=== PATIENT | female | born 2005 | race Caucasian/White ===

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

== ENCOUNTER 2023-07-26 10:42 | Emergency (ER) | payer OTHER, SELFPAY ==
--- NOTE | ~2023-07-26 | XR_ITS ---
EXAMINATION: XR wrist LT min 3V DATE: 07/26/2023 10:59 INDICATION: Left wrist pain, initial encounter TECHNIQUE: Three views of the left wrist were obtained. COMPARISON: None available FINDINGS: There is an acute, traumatic, closed, comminuted, intra-articular fracture of the distal ra dius. The fracture plane extends from lateral cortex of the radial styloid to the distal articular vallejo rface as well as along the axis of the distal radial shaft. There is impaction at the fracture site w ith fracture fragments projecting dorsal to the distal radius. An ulnar styloid avulsion is noted. No additional fracture is identified. Soft tissue swelling surrounds the fractures. IMPRESSION: 1. Comminuted intra-articular fracture of the distal radius as detailed above. 2. Ulnar styloid avulsion. Reviewed, dictated and finalized at location B. L OPERATOR
[2023-07-26 11:00] VITALS: BP 105/65; PULSE 106; RESP 18; TEMP 36.4; O2SAT 100
--- NOTE | 2023-07-26 11:16 | ED.UPPEXIN ---
HPI - Extremity Injury (Upper) General Chief Complaint: Extremity Injury, Upper Stated Complaint: left wrist injury Time Seen by Provider: 07/26/23 11:03 History of Present Illness HPI narrative: 17-year-old female presents to the emergency room for evaluation of left wrist pain status post FOOSH injury. Patient states that she was at work, when she slipped and fell on a wet floor landing on an outstretched arm. Related Data Home Medications Medication Instructions Recorded Confirmed quetiapine 50 mg tablet 50 mg PO DAILY 12/06/20 06/28/23 topiramate 25 mg tablet (Topamax) 25 mg PO DAILY 05/04/22 06/28/23 Allergies Allergy/AdvReac Type Severity Reaction Status Date / Time amoxicillin Allergy Hives Verified 06/28/23 13:24 Review of Systems Review of Systems: CONSTITUTIONAL: Denies fever, chills, or sweats. EYES: Denies visual changes, redness, or discharge. ENT: Denies rhinorrhea, congestion, sore throat, or otalgia. CARDIOVASCULAR: Denies chest pain, palpitations, or edema. RESPIRATORY: Denies cough or dyspnea. GASTROINTESTINAL: Denies abdominal pain, nausea, vomiting, or diarrhea. GENITOURINARY: Denies dysuria or hematuria. SKIN: Denies rash or itching. MUSCULOSKELETAL: Reports left wrist pain NEUROLOGIC: Denies headache, numbness, dizziness, or weakness. PSYCHIATRIC: Denies anxiety or depression. PMFSH Past Medical History Medical History Anxiety Depression Migraines Surgical History Surgical History History of myringotomy History of perforation of tympanic membrane History of tonsillectomy and adenoidectomy Social History Social History Smoking status: Never smoker Second hand tobacco smoke exposure: No Alcohol intake: never Substance use: current Substance use type: marijuana Living arrangements: with family Occupation/Education: occupation Gender identity (if verbalized by the patient): Female Sexual Orientation (if Verbalized by the Patient): Straight or Heterosexual Exam Narrative: GENERAL: Well-appearing, well-nourished, no physical limitations, and in no acute distress. HEAD: Normocephalic, atraumatic. EYES: Conjunctivae normal, PERRLA and EOMI. CHEST: Clear to auscultation. No respiratory distress. No wheezes rales or rhonchi. HEART: Regular rate and rhythm. No murmur heard. Normal peripheral pulses. EXTREMITIES: Left wrist: +TTP with STS over the dorsal aspect with obvious bony abnormality. LROM d/t pain. Neurovascular is intact distally SKIN: Warm, dry, no rash. No noted wounds NEURO: No focal deficits. Alert and oriented x3. MAEW. CN's II-XI intact bilaterally, normal gait PSYCH: Cooperative. Normal mood and affect. Course Vital Signs Vital signs: Vital Signs Temperature 36.4 C 07/26/23 11:00 Pulse Rate 106 H 07/26/23 11:00 Respiratory Rate 18 07/26/23 11:00 Blood Pressure 105/65 07/26/23 11:00 Pulse Oximetry 100 07/26/23 11:00 Temperature 36.4 C 07/26/23 11:00 Pulse Rate 106 H 07/26/23 11:00 Respiratory Rate 18 07/26/23 11:00 Blood Pressure 105/65 07/26/23 11:00 Pulse Oximetry 100 07/26/23 11:00 MDM - Extremity Injury (Upper) Imaging Data Radiologist's impression: Impressions Wrist X-Ray 07/26/23 11:04 IMPRESSION: 1. Comminuted intra-articular fracture of the distal radius as detailed above. 2. Ulnar styloid avulsion. Discharge Plan Discharge Clinical Impression: Closed left radial fracture Qualifiers: Encounter type: initial encounter Radius location: distal Fracture morphology: other intra-articular Qualified Code(s): S52.572A - Other intraarticular fracture of lower end of left radius, initial encounter for closed fracture Fracture of left ulna Qualifiers: Encounter type: initial encounter Ulna location: stylo
[2023-07-26] MEDS: HYDROcodone/acetaminophen (*CRX) 5-325 MG TABLET 1 TAB PO (11:18)
== END 2023-07-26 11:45 | disposition home or self-care (01) ==
LOC: ANHED 11:40
PROVIDERS: Emergency Provider Nurse Practitioner Family; PCP Family Medicine
DX: S52.572A Other intraarticular fracture of lower end of left radius, initial encounter for closed fracture (principal); S52.612A Displaced fracture of left ulna styloid process, initial encounter for closed fracture; F41.9 Anxiety disorder, unspecified; F32.A Depression, unspecified; W01.0XXA Fall on same level from slipping, tripping and stumbling without subsequent striking against object, initial encounter
CPT/HCPCS: 29125; 73110; 99284; A4565; A9270

== ENCOUNTER 2023-08-03 13:53 | Outpatient (CLI) | payer OTHER, SELFPAY ==
--- NOTE | ~2023-08-03 | CT_ITS ---
EXAMINATION: CT wrist LT wo con DATE: 08/03/2023 14:12 INDICATION: Left wrist pain and swelling post fall TECHNIQUE: High resolution computed tomography (CT) of the left wrist was performed without intraveno us contrast. Additional sagittal and coronal reconstructions were performed. Automated exposure contr ol and iterative reconstruction technique were employed. The dose-length product was 314.98 mGy-cm. COMPARISON: Radiograph dated 07/26/2023 FINDINGS: Again seen is a comminuted intra-articular fracture of the distal left radius. This includes a nondis placed transverse fracture extending along the region of the physeal scar and a minimally displaced s agittal oriented fracture plane extending across the articular surface at the junction of the scaphoi d and lunate fossae with up to 1.5 mm maximal fracture gap and step-off at the dorsal side of the art icular surface. There is dorsal impaction of the scaphoid fossae resulting in approximately 15 mm maddy sedrick tilt of the articular surface. There is associated comminution buckling of the dorsal sided alesia x. Small minimally displaced fracture at the tip of the ulnar styloid process. Overall the fractures are without interval change. No evident productive changes of healing yet apparent. No other fracture s identified. Normal alignment and joint space in the visualized left hand. IMPRESSION: 1. No interval change in a comminuted intra-articular fracture of the distal left radius with minimal displacement and mild dorsal impaction. 2. No interval change in a small minimally displaced ulnar styloid tip avulsion fracture. Reviewed, dictated and finalized at location A. NUE COORDINATOR IMPRESSION: 1. No interval change in a comminuted intra-articular fracture of the distal le ft radius with minimal displacement and mild dorsal impaction. 2. No interval change in a small minimally displaced ulnar styloid tip avulsion fracture.
== END 2023-08-03 13:54 | disposition home or self-care (01) ==
PROVIDERS: PCP Family Medicine; Visit Provider Plastic Surgery
DX: S52.502A Unspecified fracture of the lower end of left radius, initial encounter for closed fracture (principal); X58.XXXA Exposure to other specified factors, initial encounter
CPT/HCPCS: 73200

== ENCOUNTER 2023-08-09 03:21 | Day surgery (SDC) | payer OTHER, SELFPAY ==
[2023-08-04 12:18] VITALS: BMI 24.7
--- NOTE | 2023-08-04 12:23 | PC.NURSE ---
Report to the Outpatient Waiting Room, entrance under the green pavilion located off [facility], at time 1100 on date 08/09/23. Planned Procedure Time: 1300. Time changes happen often and if your time is changed the preop area will call you the afternoon before. - You and your visitor will be asked to self-screen and do not enter if you have any COVID symptoms. - A mask is optional within the hospital at this time. - No food OR DRINK from midnight until time of surgery Take the following medications with a SIP of water the morning of surgery: SERTRALINE, PAIN PILL IF NEEDED DO NOT STOP ANY OF YOUR OTHER PRESCRIPTION MEDICATIONS PRIOR TO SURGERY ?EXCEPT THE FOLLOWING Medications to discontinue per physician: N/A (PT STATES IBUPROFEN OK PER DR. METZGER) Date to take last dose: N/A Please no make-up, nail greek, hairspray, perfume, deodorant, or body powder the day of surgery. No jewelry (including any body piercings) or valuables the day of surgery, leave them at home. Please take a shower or bath the night before, or the morning of, surgery with an antibacterial soap. Wear comfortable, loose fitting clothing. - Jewelry must be removed prior to entering the operating room. Rings and piercings that are not removed may be cut off. - The hospital will not accept responsibility for valuables. - Please leave all valuables, including medications, at home the day of surgery. If you are going home after surgery, a licensed chassis driver must drive you home. - NO public transportation without another adult if you receive anesthesia. - We recommend that an adult stay with you for 24 hours following discharge. - We also recommend that you do not drive, make important decision, drink alcoholic beverages, or take any drugs that were not prescribed by your health care provider for at least 24 hours after your discharge time. Follow any additional instructions given to you from your surgeon. If you or anyone in your household have experienced Covid symptoms in the past week, please notify your surgeon or the nurse liaison at the phone number below for possible testing. Telephone instructions given to PT - MENG ESPINAL and asked if any additional questions and then verbalized understanding. Patient advised to call surgeon office or pre surgery nurse liaison [phone] if any additional questions.
[2023-08-09] VITALS (9 sets, daily range): BP systolic 112–132; BP diastolic 58–80; PULSE 68–92; RESP 13–18; TEMP 36.7; O2SAT 97–100
--- NOTE | ~2023-08-09 | XR_ITS ---
XR surgery orthopedic Indication: Status post ORIF distal radial fracture TECHNIQUE: Fluoroscopy used during ORIF distal radial fracture performed by [Frederick maldonado MD] on 08/09/2023. 1 minute 1 second fluoroscopy with 4 fluoroscopic images captured. FINDINGS: Correlate with procedure note. IMPRESSION: Fluoroscopy used during ORIF distal radial fracture. Reviewed, dictated and finalized at location B. OON SANDER
[2023-08-09] MEDS: LACTATED RINGERS 1,000 ML 30 ML IV CONT ×2 (11:10→15:41)
--- NOTE | 2023-08-09 11:17 | P.OP_ITS ---
Procedure Note - Detailed Date of Procedure 08/09/23 Pre-op Diagnosis left distal radius fx Post-op Diagnosis Same Procedure Performed ORIF left distal radius fracture with fixation of two intrarticular fragments Surgeon Frederick Flores MD Transmission Line Engineer Jennie Manzano PA-C Anesthesia General Description of Procedure Patient was seen in the preoperative holding area where she was marked and consented. She was taken back to the operating room on the stretcher in the supine position. Time-out was performed anesthesia surgeon and staff regarding the patient's name site and surgery to be performed. SCDs were placed on lower extremities and inflated. Antibiotics given IV. Tourniquet was placed on left upper extremity was prepped and draped in usual sterile fashion after anesthesia administered general anesthesia. The left upper extremity exsanguinated Esmarch bandage and tourniquet inflated to 250 mmHg. The mini C-arm was draped and brought into the sterile field where fluoroscopy was used to further evaluate the fracture pattern. Reduction maneuvers were performed achieving improved reduction of the dorsal radial fragment. There appeared to be good reduction of the articular surface between the 2 articular fragments. The decision was made to proceed with dorsal open reduction and internal fixation. I proceeded with making a longitudinal incision over the left dorsal distal radius through skin the dermis with a 15 scalpel Littler scissors were used to spread through the subcutaneous tissue down to the extensor retinaculum. A branch of the dorsal radial sensory nerve was identified and protected throughout the procedure. I released the 3rd extensor compartment as well as the 2nd extensor compartment. Periosteum was reflected and the fracture fragments were identified. The decision was to and was made to use an Arthrex 2 hole L-plate for fixation to capture the large displaced radial fragment. This was placed in standard fashion with multiple views of the mini C-arm fluoroscopy to verify plate placement reduction and screw placement. 2.4 mm locking screws were used in this construct. There was good maintenance of reduction of the 2 articular fragments and there appeared to be improved stability between them. This decision was made not to use any further hardware to secure the ulnar intra-articular fragment. There was no impingement on the DRUJ with radialulnar motion. Irrigated with normal saline. I proceeded with creating flaps of the the extensor palmaris longus and extensor carpi radialis longus sheath and used these to cover the plate using 3-0 Vicryl suture. The EPL was left transposed out of Quang's tubercle. There was no rubbing of the extensor tendons on the plate and this was nearly fully covered him with these flaps. There was full range of motion of the thumb wrist and digits. Further closure of 3-0 Vicryl for dermis and 4-0 Monocryl was used. A dressing of Exofin 4 x 4 Ramirez and a thumb spica splint secured with an Emmanuel bandage was then applied after the tourniquet was let down noting the hand was warm well perfused. The patient was awakened from anesthesia and transferred to the recovery room in stable condition. Complications: None Estimated blood loss: 2 cc Disposition: Patient tolerated the procedure well and will be discharged home today under stable condition. [facility] Billing Surgery - Charge Forward: Surgery Billing ([id number] and same for jennie with modifier )
--- NOTE | 2023-08-09 11:17 | WPDHPUPDATE1 ---
History and Physical Update Update Date/Time: 08/09/23 11:17 Patient seen and examined in pre-operative holding area. No interval change in medical history or symptoms. Patient recalls previous discussion of benefits and alternatives to procedure. Continues to desire to proceed with left distal radius open reduction internal fixation. Reviewed procedure, post-op expectations and risks including but not limited to bleeding, infection, injury to tendon/nerve/vessel, decreased hand function, stiffness, RSD, no change or worsening of symptoms, malunion,nonunion, hardware complications. I discussed the possible use of assistants and their participation in the case. Patient stated understanding and signed the consent form wishing to proceed.
--- NOTE | 2023-08-09 11:50 | P.PNAN_ITS ---
Anes - Initial Pre Proc Eval Procedure: Operation Date: 08/09/23 13:00 Proposed Procedures p Open Reduction Internal Fixation Left Distal Radius - Frederick Flores MD Date/Time: 08/09/23 11:50 Surgeon: Frederick Flores MD Pre Op Diagnosis: left distal radius fx Patient Data Age: 17 Gender: F Height: 1.8 m Weight: 80.3 kg Allergies Allergy/AdvReac Type Severity Reaction Status Date / Time amoxicillin Allergy Hives Verified 08/09/23 11:47 Home Medications Medication Instructions Recorded Confirmed Type quetiapine 50 mg tablet 50 mg PO HS 12/06/20 08/09/23 History topiramate 25 mg tablet (Topamax) 25 mg PO HS 05/04/22 08/09/23 History sertraline 50 mg tablet 50 mg PO DAILY #30 tabs 05/30/22 08/09/23 Rx hydrocodone 5 mg-acetaminophen 325 1 tablet PO Q6H PRN pain #20 tabs 07/26/23 08/09/23 Rx mg tablet ibuprofen 600 mg tablet 600 mg PO QID PRN Pain 08/04/23 08/09/23 History Patient hx anesthesia problems: none Family hx anesthesia problems: none Results Review: All pre-operative results and documents have been reviewed as part of the pre- operative evaluation. [facility] Past Medical History Medical History Anxiety Depression Migraines Surgical History Surgical History History of myringotomy History of perforation of tympanic membrane History of tonsillectomy and adenoidectomy Social History Social History Smoking status: Never smoker Second hand tobacco smoke exposure: No Alcohol intake: never Substance use: current Substance use type: marijuana Living arrangements: with family Occupation/Education: occupation Gender identity (if verbalized by the patient): Female Sexual Orientation (if Verbalized by the Patient): Straight or Heterosexual Spiritual care concerns: No Anes - Eval Final PreProcedure Day of Procedure 08/09/23 11:50 Patient weight: normal Heart: regular rate and rhythm Lungs: clear to auscultation Airway: Mallampati scale class II Neurological: alert and oriented Last oral intake: >/= 8 hours ASA classification: II Emergent: no Anesthetic plan: proceed Anesthesia type and monitoring: general LMA and standard monitoring Results Review: All pre-operative results and documents have been reviewed as part of the pre- operative evaluation. Informed Consent: The patient's anesthetic plan and its attendant risks and benefits were discussed with the patient/family/POA. Questions were solicited and answers provided to the satisfaction of the patient/family/POA.
[2023-08-09] MEDS: ceFAZolin 2 GM/D5W 50 ML 2 GM/50 ML BAG IVPB (12:32)
[2023-08-09] MEDS: BUPivacaine HCL 0.5% 10 ML AMP INFILTRATE (13:48)
== END 2023-08-09 16:25 | disposition home or self-care (01) ==
PROVIDERS: PCP Family Medicine; Visit Provider Plastic Surgery
PROC: (CPT 25608; principal; 2023-08-09 13:00)
DX: S52.502A Unspecified fracture of the lower end of left radius, initial encounter for closed fracture (principal); F41.9 Anxiety disorder, unspecified; F32.A Depression, unspecified; F12.90 Cannabis use, unspecified, uncomplicated; Z79.891 Long term (current) use of opiate analgesic; Z79.1 Long term (current) use of non-steroidal anti-inflammatories (NSAID); W19.XXXA Unspecified fall, initial encounter; Y92.69 Other specified industrial and construction area as the place of occurrence of the external cause
CPT/HCPCS: 25608; 99199; A9270; C1769; J0690; J1100; J1170; J1200; J2250; J2371; J2405; J2704; J3010; J7120

== ENCOUNTER 2023-08-28 11:33 | Outpatient (CLI) | payer OTHER, SELFPAY ==
--- NOTE | ~2023-08-28 | XR_ITS ---
EXAMINATION: XR wrist LT 2V DATE: 08/28/2023 12:00 INDICATION: Unspecified fracture of the lower end of left forearm. TECHNIQUE: 2 views of left wrist were obtained. COMPARISON: Left wrist radiographs 07/26/2023 FINDINGS: There is a comminuted fractures of distal radius with involvement of the distal articular s urface. The main distal fracture fragment demonstrates impaction and dorsal angulation. There is 7 de grees dorsal tilt of the distal articular surface. Internal fixation is seen with a dorsal plate and screws. Callus formation is noted. There is an avulsion fracture of the ulnar styloid. Joint spaces a re normal. IMPRESSION: 1. Healing comminuted fracture of distal radius with internal fixation. 2. Avulsion fracture of the ulnar styloid. Reviewed, dictated and finalized at location A. HER OPERATOR
== END 2023-08-28 11:34 | disposition home or self-care (01) ==
PROVIDERS: PCP Family Medicine; Visit Provider Physician Assistant Surgical
DX: S52.502D Unspecified fracture of the lower end of left radius, subsequent encounter for closed fracture with routine healing (principal); X58.XXXD Exposure to other specified factors, subsequent encounter
CPT/HCPCS: 73100

== ENCOUNTER 2023-10-23 14:45 | Outpatient (CLI) | payer OTHER, SELFPAY ==
--- NOTE | ~2023-10-23 | XR_ITS ---
XR wrist LT 2V DATE: 10/23/2023 14:56 INDICATION: Fracture follow-up TECHNIQUE: AP and lateral views COMPARISON: 08/28/2023 left wrist 08/03/2023 CT left wrist 07/26/2023 left wrist FINDINGS: Dorsal plate and posteroanteriorly through screws are intact. The intra-articular fracture line of the distal radius is not readily evident radiographically, compatible with interval healing. No significant displacement deformity is noted but there is mild dorsal inclination of the distal rad ial articular surface. Normal alignment at the radiocarpal joint. IMPRESSION: Advanced healing of internally fixated distal radial intra-articular fracture Reviewed, dictated and finalized at location B. ERCIAL TITLE EXAMINER IMPRESSION: Advanced healing of internally fixated distal radial intra-articula r fracture
== END 2023-10-23 14:46 | disposition home or self-care (01) ==
PROVIDERS: PCP Family Medicine; Visit Provider Physician Assistant Surgical
DX: S52.502D Unspecified fracture of the lower end of left radius, subsequent encounter for closed fracture with routine healing (principal); X58.XXXD Exposure to other specified factors, subsequent encounter
CPT/HCPCS: 73100

== ENCOUNTER 2024-05-02 09:17 | Outpatient (CLI) | payer OTHER, SELFPAY ==
[2024-05-02 10:10] LABS: SARS-CoV-2 RNA PCR Negative (Negative)
== END 2024-05-02 09:18 | disposition home or self-care (01) ==
PROVIDERS: PCP Family Medicine; Visit Provider Family Medicine
DX: H92.09 Otalgia, unspecified ear (principal); R09.81 Nasal congestion; Z20.822 Contact with and (suspected) exposure to COVID-19
CPT/HCPCS: 87635

== ENCOUNTER 2024-05-05 12:17 | Emergency (ER) | payer OTHER, SELFPAY ==
[2024-05-05 12:28] VITALS: BP 134/69; PULSE 75; RESP 20; TEMP 36.8; O2SAT 100
--- NOTE | 2024-05-05 12:30 | ED.NAVMDI ---
HPI - Nausea/Vomiting/Diarrhea General Chief complaint: Nausea/Vomiting/Diarrhea Stated complaint: stomach issue,throwing up Time Seen by Provider: 05/05/24 12:30 Source: patient Mode of arrival: ambulatory Limitations: no limitations History of Present Illness HPI Narrative: 18 yo F presents with c/o N/V, upset stomach for 2 to 3 days. Vomited twice yesterday and once today. Able to keep down gatorade. has had nasal congestion but does not think it related. Called PCP for appt and made pt get outpatient covid test. Covid test was negative. Afebrile. Well appearing and talkative. All systems reviewed and negative except as noted above. Related Data Home Medications Medication Instructions Recorded Confirmed quetiapine 50 mg tablet 50 mg PO HS 12/06/20 05/05/24 topiramate 25 mg tablet (Topamax) 25 mg PO HS 05/04/22 05/05/24 Allergies Allergy/AdvReac Type Severity Reaction Status Date / Time amoxicillin Allergy Hives Verified 05/05/24 12:25 Review of Systems Review of Systems: CONSTITUTIONAL: Denies fever, chills, or sweats. EYES: Denies visual changes, redness, or discharge. ENT: Denies rhinorrhea, congestion, sore throat, or otalgia. CARDIOVASCULAR: Denies chest pain, palpitations, or edema. RESPIRATORY: Denies cough or dyspnea. GASTROINTESTINAL: Reports upset stomach, nausea, vomiting. Denies diarrhea. GENITOURINARY: Denies dysuria or hematuria. SKIN: Denies rash or itching. MUSCULOSKELETAL: Denies back pain, joint pain, or myalgia. NEUROLOGIC: Denies headache, numbness, or weakness. PSYCHIATRIC: Denies anxiety or depression. All other systems reviewed are negative, except as documented in HPI. FOR[facility]LY [facility] Past Medical History Medical History Anxiety Depression Migraines Surgical History Surgical History History of myringotomy History of perforation of tympanic membrane History of tonsillectomy and adenoidectomy Social History Social History Smoking status: Never smoker Second hand tobacco smoke exposure: No Alcohol intake: never Substance use: current Substance use type: marijuana Living arrangements: with family Occupation/Education: occupation Gender identity (if verbalized by the patient): Female Sexual Orientation (if Verbalized by the Patient): Straight or Heterosexual Spiritual care concerns: No Comments At time of signature, agree with nursing past medical, surgical, social and family history. There is no relevant family history pertinent to the presenting complaint. Exam Narrative: GENERAL: This is a well-nourished, well-developed patient, in no apparent distress. HEAD: normocephalic, atraumatic. EYES: PERRL. Sclera clear/white. Vision is grossly intact. EARS: External ears normal, auditory canals clear and without drainage, TMs normal without perforation. Hearing grossly intact. NOSE: External nose normal with no obvious nasal discharge, nares without redness, no rhinorrhea. THROAT: Mucous membranes moist, posterior pharynx clear. NECK: Neck supple, non-tender without lymphadenopathy, masses or thyromegaly. CARDIOVASCULAR: Regular rate and rhythm without murmurs, gallops, or rubs. RESPIRATORY: Clear to auscultation. Breath sounds equal bilaterally. No wheezes, rales, or rhonchi. GASTROINTESTINAL: Abdomen soft, non-tender, nondistended. Bowel sounds are active. No hepato-splenomegaly, or palpable masses. No guarding. SKIN: warm, Dry, intact with no suspicious lesions or rash, good texture and turgor. NEURO: awake, alert, and oriented to person, place and time. There were no obvious focal neurologic abnormalities. EXTREMITIES: No joint tenderness, effusion, or edema noted. Course Course Level of Care: Express Care Visit Vital Signs Vital signs: Vital Signs Temperature 36.8 C
[2024-05-05 13:01] LABS: EDINFLUASCREEN Negative; EDINFLUBSCREEN Negative
== END 2024-05-05 13:15 | disposition home or self-care (01) ==
PROVIDERS: Emergency Provider Nurse Practitioner Family; PCP Family Medicine
DX: A08.4 Viral intestinal infection, unspecified (principal)
CPT/HCPCS: 87804; 99213; G0463

== ENCOUNTER 2024-05-21 14:35 | Outpatient (CLI) | payer OTHER, SELFPAY ==
--- NOTE | ~2024-05-21 | CT_ITS ---
EXAMINATION: CT abdomen pelvis wo con DATE: 05/21/2024 15:09 INDICATION: Nausea and vomiting. TECHNIQUE: Computed tomography (CT) of the abdomen and pelvis was performed without intravenous contr ast. Automated exposure control and iterative reconstruction technique were employed. The dose-length product was 634.70 mGy-cm. COMPARISON: None. FINDINGS: The visualized portions of the lung bases are clear without pneumonia or pleural effusion. The heart size is normal. No pericardial effusion. The gallbladder, liver, spleen, pancreas, adrenal glands, and kidneys are normal. There is no urolithiasis. There are no dilated loops of bowel. The ap pendix is normal. There are no pathologically enlarged lymph nodes. There is no free intraperitoneal fluid. There is thoracolumbar dextrocurvature. IMPRESSION: 1. No etiology for the patient's symptoms. Reviewed, dictated and finalized at location A.
== END 2024-05-21 14:36 | disposition home or self-care (01) ==
PROVIDERS: PCP Family Medicine; Visit Provider Physician Assistant
DX: R11.2 Nausea with vomiting, unspecified (principal); R10.9 Unspecified abdominal pain; R14.0 Abdominal distension (gaseous); R68.83 Chills (without fever)
CPT/HCPCS: 74176